=== PATIENT | male | born 1985 | race Caucasian/White ===

== ENCOUNTER 2017-07-05 11:32 | Emergency (ER) | payer OTHER ==
--- NOTE | 2017-07-05 12:30 | RAD REPORT ---
EXAM DESCRIPTION: RAD - Hand Left 3 View - 07/05/2017 12:21 pm CLINICAL HISTORY: Puncture wound in the thenar region. COMPARISON: None. FINDINGS: No fracture is identified. No dislocation or periosteal reaction noted. No foreign body or other soft tissue abnormality. IMPRESSION: Negative left hand examination.
--- NOTE | 2017-07-05 12:45 | ER ---
Nurse's Notes [facility] Name: Gregorio Almazan Age: 32 yrs Sex: Male : 1985 Arrival Date: 07/05/2017 Time: 11:35 Bed 11 Private MD: Diagnosis: Puncture wound without foreign body of left hand Presentation: 07/05 11:42 Presenting complaint: Patient states: drill bit when it my thumb. Transition of care: tw2 patient was not received from another setting of care. Complicating Factors: There are no complicating factors for this patient. Onset of symptoms was July 05, 2017. Initial Sepsis Screen: Does the patient meet any 2 criteria? No. Patient's initial sepsis screen is negative. Does the patient have a suspected source of infection? No. Patient's initial sepsis screen is negative. Care prior to arrival: None. 11:42 Method Of Arrival: Ambulatory tw2 11:42 Acuity: RIO 4 tw2 Historical: - Allergies: 11:44 No Known Allergies; tw2 - Home Meds: 11:44 Nexium 20 mg Oral cpDR 1 cap once daily [Active]; tw2 - PMHx: 11:44 GERD; tw2 - PSHx: 11:44 None; tw2 - Immunization history:: Last tetanus immunization: unknown. - Social history:: Smoking status: Patient uses tobacco products, smokes one-half pack cigarettes per day. Screenin:54 Abuse screen: Denies threats or abuse. Denies injuries from another. Nutritional iw screening: No deficits noted. Tuberculosis screening: No symptoms or risk factors identified. Fall Risk None identified. Assessment: 11:52 General: Appears in no apparent distress. Behavior is calm, cooperative. Pain: iw Complains of pain in Left first web space. Neuro: Level of Consciousness is awake, alert, obeys commands, Oriented to person, place, time, situation, Moves all extremities. Full function. Cardiovascular: Patient's skin is warm and dry. Respiratory: Respiratory effort is even, unlabored. GI: Abdomen is flat. Derm: Skin is pink, warm \T\ dry. normal. Musculoskeletal: Range of motion: intact in all extremities. Injury Description: Laceration sustained to Left first web space is 0.5 to 2.5 cm long, was sustained less than 30 minutes ago. 13:15 Reassessment: Patient appears in no apparent distress at this time. Patient and/or iw family updated on plan of care and expected duration. Pain level reassessed. Patient is alert, oriented x 3, equal unlabored respirations, skin warm/dry/pink. Vital Signs: 11:43 BP 132 / 85; Pulse 80; Resp 17; Temp 97.9(TE); Pulse Ox 97% on R/A; Weight 81.65 kg tw2 (R); Height 5 ft. 10 in. (177.80 cm); Pain 0/10; 11:43 Body Mass Index 25.83 (81.65 kg, 177.80 cm) tw2 ED Course: 11:35 Patient arrived in ED. rg4 11:42 Arm band placed on. tw2 11:43 Triage completed. tw2 11:46 Albin Casey NP is PHCP. pm1 11:46 Zechariah Kelly MD is Attending Physician. pm1 11:52 Alisson Lao RN is Primary Nurse. iw 12:20 X-ray completed. Portable x-ray completed in exam room. Patient tolerated procedure sw well. 12:21 Hand Left 3 View XRAY In Process Unspecified. EDMS 13:15 Patient has correct armband on for positive identification. iw 13:15 No provider procedures requiring assistance completed. Patient did not have IV access iw during this emergency room visit. Administered Medications: No medications were administered Outcome: 12:45 Discharge ordered by . pm1 13:16 Discharged to home ambulatory, with friend. iw 13:16 Condition: good 13:16 Discharge instructions given to patient, Instructed on discharge instructions, follow up and referral plans. medication usage, Demonstrated understanding of instructions, follow-up care, medications, Prescriptions given X 1. 13:16 Patient left the ED. iw Signatures: Dispatcher [employer] EDMS Alisson Lao, RN RN iw Aretha Olmstead Albin Casey NP CHUTE LOADER pm1 Tana Reyez RN RN tw2 Vikki Nam rg4 Corrections: (The following items were deleted from the chart) 12:01 11:52 Pain: Complains of pain in Right first web space iw iw 12:01 11:52 Injury Description: Laceration sustained to Right first web space is 0.5 to 2.5 iw cm long, was sustained less than 30 minutes ago. iw
--- NOTE | 2017-07-05 12:46 | EDPHYS ---
Physician Documentation [facility] Name: Gregorio Almazan Age: 32 yrs Sex: Male : 1985 Arrival Date: 07/05/2017 Time: 11:35 Bed 11 Private MD: ED Physician Zechariah Kelly HPI: 07/05 12:47 This 32 yrs old Male presents to ER via Ambulatory with complaints of pm1 Laceration To Hand. 12:47 The patient has a laceration occurred at work, and there are no complicating factors. pm1 The laceration(s) is(are) located on the Left first web space. Onset: The symptoms/episode began/occurred just prior to arrival. Associated signs and symptoms: Pertinent negatives: deformity, heavy bleeding, numbness distal to injury, suspected foreign body. patient was drilling an aluminium piece and the drill bit broke and cut his hand. Historical: - Allergies: 11:44 No Known Allergies; tw2 - Home Meds: 11:44 Nexium 20 mg Oral cpDR 1 cap once daily [Active]; tw2 - PMHx: 11:44 GERD; tw2 - PSHx: 11:44 None; tw2 - Immunization history:: Last tetanus immunization: unknown. - Social history:: Smoking status: Patient uses tobacco products, smokes one-half pack cigarettes per day. ROS: 12:47 Constitutional: Negative for fever, chills, and weight loss, Eyes: Negative for injury, pm1 pain, redness, and discharge, ENT: Negative for injury, pain, and discharge, Neck: Negative for injury, pain, and swelling, Cardiovascular: Negative for chest pain, palpitations, and edema, Respiratory: Negative for shortness of breath, cough, wheezing, and pleuritic chest pain, Abdomen/GI: Negative for abdominal pain, nausea, vomiting, diarrhea, and constipation, Back: Negative for injury and pain, MS/Extremity: Negative for injury and deformity. 12:47 Skin: Positive for laceration(s), of the Left first web space. Exam: 12:47 Constitutional: This is a well developed, well nourished patient who is awake, alert, pm1 and in no acute distress. Head/Face: Normocephalic, atraumatic. 12:47 MS/ Extremity: Pulses equal, no cyanosis. Neurovascular intact. Full, normal range of motion. FROM intact to left thumb 12:47 Skin: injury, puncture(s), that are superficial, of the Left first web space. Vital Signs: 11:43 BP 132 / 85; Pulse 80; Resp 17; Temp 97.9(TE); Pulse Ox 97% on R/A; Weight 81.65 kg tw2 (R); Height 5 ft. 10 in. (177.80 cm); Pain 0/10; 11:43 Body Mass Index 25.83 (81.65 kg, 177.80 cm) tw2 MDM: 11:47 Patient medically screened. pm1 12:42 Data reviewed: vital signs. Data interpreted: Pulse oximetry: on room air is 97 %. pm1 Interpretation: normal. Counseling: I had a detailed discussion with the patient and/or guardian regarding: radiology results. 12:47 Counseling: I had a detailed discussion with the patient and/or guardian regarding: the pm1 historical points, exam findings, and any diagnostic results supporting the discharge/admit diagnosis, the need for outpatient follow up, to return to the emergency department if symptoms worsen or persist or if there are any questions or concerns that arise at home. 12:47 Special discussion: I discussed in detail with the patient the higher chance of wound pm1 infection based on his presenting history. small puncture wound that is not actively bleeding. Probed with sterile end of swab and wound is approximately 3 mm deep. Shallow wound, not suturing required. To allow drainage and prevent infection, will not suture to allow it to close by secondary intention . 07/05 12:00 Order name: Hand Left 3 View XRAY; Complete Time: 12:42 pm1 Administered Medications: No medications were administered Disposition: 17:16 Co-signature as Attending Physician, Zechariah Kelly MD. rn Disposition: 07/05/17 12:45 Discharged to Home. Impression: Puncture wound without foreign body of left hand. - Condition is Stable. - Discharge Instructions: Puncture Wound. - Prescriptions for Bactrim DS 800- 160 mg Oral Tablet - take 1 tablet by ORAL route every 12 hours for 10 days; 20 tablet. - Medication Reconciliation Form, Thank You Letter, Antibiotic Education form. - Follow up: Emergency Department; When: As needed; Reason: Worsening of condition. Follow up: Private Physician; When: 2 - 3 days; Reason: Wound Recheck, Recheck today's complaints, Continuance of care, Re-evaluation by your physician. - Problem is new. - Symptoms have improved. Signatures: Dispatcher [employer] Alisson Szymanski, RN RN Zechariah Oro MD MD rn Marinas, Patrick, ASSISTANT PROFESSOR OF PSYCHOLOGY ASSISTANT PROFESSOR OF PSYCHOLOGY pm1 Tana Reyez RN RN tw2
== END 2017-07-05 13:16 | disposition home or self-care (01) ==
LOC: ER 11:32
DX: S61.432A Puncture wound without foreign body of left hand, initial encounter (principal); W29.8XXA Contact with other powered hand tools and household machinery, initial encounter; Y93.89 Activity, other specified; Y92.9 Unspecified place or not applicable; F17.210 Nicotine dependence, cigarettes, uncomplicated
CPT/HCPCS: 99283